=== PATIENT | female | born 1980 | race Two or more races ===

== ENCOUNTER 2018-04-25 16:19 | Outpatient (CLI) | payer OTHER | END 2018-04-25 16:44 | disposition home or self-care (01) | LOC: LAB 16:19 | DX: O00.101 Right tubal pregnancy without intrauterine pregnancy (principal); A92.8 Other specified mosquito-borne viral fevers ==

== ENCOUNTER 2018-04-26 09:10 | Outpatient (CLI) | payer OTHER | END 2018-04-26 09:12 | disposition home or self-care (01) | LOC: SONOGRAMA 09:10 | DX: O00.101 Right tubal pregnancy without intrauterine pregnancy (principal) ==

== ENCOUNTER 2018-10-09 13:44 | Inpatient (IN) | payer OTHER ==
[~2018-10-09] VITALS: Ht 154.9 cm; Wt 47.6 kg
[2018-10-09] MEDS ORDERED: PRENATAL CAPLE1 EAC1 PO (15:10)
[2018-10-11] MEDS ORDERED: OXYC1TAB9 PO (13:18)
[2018-10-11] MEDS ORDERED: IBUPROFEN800 MG PO (13:18)
[2018-10-11] MEDS ORDERED: TUSSIN DM LIQU118 ML PO (13:19)
[2018-10-11] MEDS ORDERED: MAXFE CAPLET1 EACH PO (13:19)
== END 2018-10-11 14:07 | disposition home or self-care (01) | DRG 788 ==
LOC: LDR 13:44 → O/R 17:43 → SURH 18:52
PROVIDERS: ADMIT Obstetrics & Gynecology
PROC: 10D00Z1 Extraction of Products of Conception, Low, Open Approach (ICD-10-PCS; principal; 2018-10-09 14:00)
DX: O82 Encounter for cesarean delivery without indication (principal); O32.1XX0 Maternal care for breech presentation, not applicable or unspecified; Z3A.28 28 weeks gestation of pregnancy; Z37.1 Single stillbirth

== ENCOUNTER → 2020-01-18 06:53 | Outpatient (CLI) | payer OTHER ==
[~2020-01-18 06:53] MED LIST: IBUPROFEN800 MG PO; MAXFE CAPLET1 EACH PO; OXYC1TAB9 PO; PRENATAL CAPLE1 EAC1 PO; TUSSIN DM LIQU118 ML PO
== END | disposition home or self-care (01) ==
LOC: LAB 06:53
PROVIDERS: ATTEND Obstetrics & Gynecology Gynecology
DX: D64.89 Other specified anemias (principal); E03.8 Other specified hypothyroidism; E55.9 Vitamin D deficiency, unspecified; E78.49 Other hyperlipidemia; N39.0 Urinary tract infection, site not specified; Z12.11 Encounter for screening for malignant neoplasm of colon

== ENCOUNTER 2020-02-11 16:30 | Outpatient (CLI) | payer OTHER | END 2020-02-11 16:36 | disposition home or self-care (01) | LOC: LAB 16:30 | PROVIDERS: ATTEND Obstetrics & Gynecology Maternal & Fetal Medicine | DX: Z34.81 Encounter for supervision of other normal pregnancy, first trimester (principal) ==

== ENCOUNTER → 2020-02-19 14:18 | Outpatient (CLI) | payer OTHER | END | disposition home or self-care (01) | LOC: LAB 14:18 | PROVIDERS: ATTEND Obstetrics & Gynecology Maternal & Fetal Medicine | DX: Z34.81 Encounter for supervision of other normal pregnancy, first trimester (principal) ==

== ENCOUNTER 2020-06-26 13:09 | Outpatient (CLI) | payer OTHER | END 2020-06-26 13:55 | disposition home or self-care (01) | LOC: NST 13:09 | PROVIDERS: ATTEND Obstetrics & Gynecology | DX: Z34.82 Encounter for supervision of other normal pregnancy, second trimester (principal) ==

== ENCOUNTER → 2020-06-29 | Outpatient (CLI) | payer OTHER | END | disposition home or self-care (01) | LOC: NST 20:05 | PROVIDERS: ATTEND Obstetrics & Gynecology | DX: Z34.82 Encounter for supervision of other normal pregnancy, second trimester (principal) ==

== ENCOUNTER 2020-07-17 11:37 | Outpatient (CLI) | payer OTHER | END 2020-07-17 12:34 | disposition home or self-care (01) | LOC: NST 11:37 | PROVIDERS: ATTEND Obstetrics & Gynecology Maternal & Fetal Medicine | DX: Z34.83 Encounter for supervision of other normal pregnancy, third trimester (principal) ==

== ENCOUNTER 2020-08-13 11:41 | Outpatient (CLI) | payer OTHER | END 2020-08-13 14:27 | disposition home or self-care (01) | LOC: NST 11:41 | PROVIDERS: ATTEND Obstetrics & Gynecology Maternal & Fetal Medicine | DX: Z34.83 Encounter for supervision of other normal pregnancy, third trimester (principal) ==

== ENCOUNTER 2020-08-28 10:13 | Outpatient (CLI) | payer OTHER | END 2020-08-28 11:05 | disposition home or self-care (01) | LOC: NST 10:13 | PROVIDERS: ATTEND Obstetrics & Gynecology Maternal & Fetal Medicine | DX: Z34.83 Encounter for supervision of other normal pregnancy, third trimester (principal) ==

== ENCOUNTER 2020-09-04 09:39 | Outpatient (CLI) | payer OTHER | END 2020-09-04 10:42 | disposition home or self-care (01) | LOC: NST 09:39 | PROVIDERS: ATTEND Obstetrics & Gynecology | DX: Z34.83 Encounter for supervision of other normal pregnancy, third trimester (principal) ==

== ENCOUNTER 2020-09-04 21:36 | Inpatient (IN) | payer OTHER ==
[~2020-09-04] VITALS: Ht 154.9 cm; Wt 2.7 kg
== END 2020-09-09 17:36 | disposition home or self-care (01) | DRG 786 ==
LOC: O/R 21:36 → LDR 21:36 → O/R 09-05 13:21 → SURG-SUITE 09-05 14:25
PROVIDERS: ADMIT Obstetrics & Gynecology Maternal & Fetal Medicine; ATTEND Obstetrics & Gynecology Maternal & Fetal Medicine
PROC: 4A1HXFZ Monitoring of Products of Conception, Cardiac Rhythm, External Approach (ICD-10-PCS; 2020-09-04)
PROC: 10D00Z1 Extraction of Products of Conception, Low, Open Approach (ICD-10-PCS; principal; 2020-09-05 14:00)
DX: O65.5 Obstructed labor due to abnormality of maternal pelvic organs (principal); O34.211 Maternal care for low transverse scar from previous cesarean delivery; O60.14X0 Preterm labor third trimester with preterm delivery third trimester, not applicable or unspecified; Z3A.36 36 weeks gestation of pregnancy; Z37.0 Single live birth; Z20.822 Contact with and (suspected) exposure to COVID-19

== ENCOUNTER 2024-03-13 16:00 | Emergency (ER) | payer OTHER ==
[~2024-03-13] VITALS: Ht 154.9 cm; Wt 44.5 kg
[2024-03-13] MEDS ORDERED: ONDANSETRON HCL 2 MG/ML VIAL IV ONE (16:45)
[2024-03-13] MEDS ORDERED: FAMOtidine 10 MG/ML (4ML VIAL) IV ONE (16:45)
[2024-03-13 17:29] LABS: HEMATOCRIT 39.3 % (36.0-45.00); HEMOGLOBIN 13.1 g/dL (12.0-15.00); MEAN CELL VOLUME 89.8 fL (80.00-100.00); MEAN CORPUSCULAR HEMOGLOBIN 29.9 pg (27.00-32.0); MEAN CORPUSCULAR HGB CONC 33.3 g/dl (32.0-36.0); PLATELET COUNT 241 K/uL (150-450); RED BLOOD COUNT 4.38 M/uL (4.00-6.00); RED CELL DISTRIBUTION WIDTH 12.8 % (11.5-14.5)
[2024-03-13 17:56] LABS: ALBUMIN 3.7 gm/dL (3.4-5.0); BILIRUBIN TOTAL 0.7 mg/dL (0.3-1.2); CALCIUM 8.9 mg/dL (8.5-10.1); CREATININE SERUM 0.53 mg/dL (0.55-1.02); GFR 127.12; GLOBULINA 3.4 G/DL (2.4-3.5); POTASSIUM 3.69 mEq/L (3.5-5.1); TOTAL PROTEIN 7.1 gm/dL (6.4-8.2)
[2024-03-13] MEDS ORDERED: MECLIZINE HCL 25 MG TABLET PO ONE (18:00)
[2024-03-13 18:14] LABS: PH,URINE 7.5 (5.0-8.0); URINE APPEARANCE Turbid; URINE BILIRRUBIN Negative (NEGATIVE); URINE BLOOD Negative; URINE COLOR Yellow; URINE GLUCOSE Negative (NEGATIVE); URINE LEUKOCYTE Negative; URINE NITRATE Negative; URINE PROTEIN Trace (NEGATIVE)
[2024-03-13 18:17] LABS: URINE EPITHELIAL CELLS 13.6 uL (0.0-38.8); URINE RBC 20.3 uL (0.0-20.8); URINE WBC 14.2 uL (0.0-23.2)
[2024-03-13 18:39] LABS: URINE CAST 0.29 uL (0.0-1.40); URINE KETONE >=160 (NEGATIVE)
[2024-03-13] MEDS ORDERED: ZOFRAN8 MG PO (19:09)
[2024-03-13] MEDS ORDERED: MECLIZINE HCL25 MG PO (19:09)
[2024-03-13] MEDS ORDERED: PEPCID AC20 MG PO (19:09)
== END 2024-03-13 19:52 | disposition home or self-care (01) ==
LOC: ER 16:03
PROVIDERS: General Practice
DX: R11.10 Vomiting, unspecified (principal); Z88.0 Allergy status to penicillin

== ENCOUNTER 2024-03-17 18:27 | Emergency (ER) | payer OTHER ==
[~2024-03-17] VITALS: Ht 160 cm; Wt 63.5 kg
[~2024-03-17 18:27] MED LIST changes: +MECLIZINE HCL25 MG PO; +PEPCID AC20 MG PO; +ZOFRAN8 MG PO
== END 2024-03-17 22:31 | disposition home or self-care (01) ==
LOC: ER 18:29
DX: G97.1 Other reaction to spinal and lumbar puncture (principal); R51.9 Headache, unspecified; Z88.0 Allergy status to penicillin; K21.9 Gastro-esophageal reflux disease without esophagitis